=== PATIENT | female | born 1960 | race Caucasian/White ===

== ENCOUNTER 2023-01-10 07:15 | Outpatient (CLI) | payer OTHER ==
[2023-01-10 14:30] LABS: BASOPHILS % (AUTO) 0.6 %; EOSINOPHILS # (AUTO) 0.2 10^3/uL (0.0-0.7); EOSINOPHILS % (AUTO) 3.2 %; HCT - HEMATOCRIT 45.1 % (37.0-47.0); HGB - HEMOGLOBIN 13.9 g/dL (12.0-16.0); LYMPHOCYTES # (AUTO) 1.8 10^3/uL (1.5-3.5); LYMPHOCYTES % (AUTO) 29.3 %; MEAN CORPUSCULAR HEMOGLOBIN 27.3 pg (27.0-31.0); MEAN CORPUSCULAR HGB CONC 30.8 g/dL (32.0-36.0); MEAN CORPUSCULAR VOLUME 88.6 fL (81.0-99.0); MONOCYTES # (AUTO) 0.5 10^3/uL (0.0-1.0); MONOCYTES % (AUTO) 7.6 %; NEUTROPHILS # (AUTO) 3.7 10^3/uL (1.5-6.6); NEUTROPHILS % (AUTO) 59.1 %; PLT - PLATELET COUNT 282 10^3/uL (130-450); RED BLOOD COUNT 5.09 10^6/uL (4.20-5.40); RED CELL DISTRIBUTION WIDTH 14.3 % (12.0-15.0); WHITE BLOOD COUNT 6.2 x10^3/uL (4.8-10.8)
[2023-01-10 15:12] LABS: THYROID STIMULATING HORMONE 3.11 uIU/mL (0.34-5.60)
[2023-01-10 15:16] LABS: ALBUMIN 3.7 g/dL (3.2-5.5); ALBUMIN/GLOBULIN RATIO 1.1 (1.0-2.2); ALKALINE PHOSPHATASE 54 IU/L (42-121); ALT ALANINE AMINOTRANSFERASE 14 IU/L (10-60); AST ASPARTATE AMINOTRANSFERASE 16 IU/L (10-42); BILIRUBIN,TOTAL 0.5 mg/dL (0.2-1.0); BUN - BLOOD UREA NITROGEN 20 mg/dL (6-20); CALCIUM 9.2 mg/dL (8.5-10.3); CARBON DIOXIDE - CO2 29 mmol/L (21-32); CHLORIDE 102 mmol/L (101-111); CHOL/HDL RATIO 6.7 (<4.4); CHOLESTEROL 276 mg/dL; CREATININE 0.8 mg/dL (0.4-1.0); GFR - MDRD 73 (>89); GLUCOSE 103 mg/dL (70-100); HDL CHOLESTEROL 41 mg/dL; LDL CHOLESTEROL,CALCULATED 160 mg/dL; LDL/HDL RATIO 3.9 (<4.4); POTASSIUM 3.3 mmol/L (3.5-5.0); SODIUM 139 mmol/L (135-145); TRIGLYCERIDES 377 mg/dL; VLDL CHOLESTEROL 75 mg/dL
--- NOTE | 2023-01-10 17:46 | XRAY Report ---
PROCEDURE: Lumbar Spine Complete INDICATIONS: SCOLIOSIS TECHNIQUE: 4 views of the lumbar spine were acquired. COMPARISON: None. FINDINGS: Bones: 5 [id number] vertebrae are present. There is moderate levoscoliosis of lumbar spine wit h apex at L2-3 level and Teran angle measures approximately 30.3 degrees. No vertebral body compressio n fractures. Degenerative endplate changes, loss of disc height and bilateral facet arthrosis through out lumbar spine is seen. There is 1.2 cm anterolisthesis of L4 on L5. No suspicious bony lesions. Soft tissues: Overlying bowel gas pattern is normal. No suspicious soft tissue calcifications. IMPRESSION: 1. Moderate levoscoliosis of lumbar spine as above. No acute compression fracture. 2. 1.2 cm anterolisthesis of L4 on L5. Moderate degenerative disc disease throughout lumbar spine. Reviewed by: Ari Romero MD on 01/10/2023 5:45 PM PDT Approved by: Ari Romero MD on 01/10/2023 5:45 PM PDT Station ID: [id number]
== END 2023-01-10 07:16 | disposition home or self-care (01) ==
LOC: DI.S 07:15
PROVIDERS: ATTEND Internal Medicine
DX: M41.9 Scoliosis, unspecified (principal); I10 Essential (primary) hypertension; L65.9 Nonscarring hair loss, unspecified; M43.16 Spondylolisthesis, lumbar region; M51.36 Other intervertebral disc degeneration, lumbar region
CPT/HCPCS: 36415; 80053; 80061; 83721; 84443; 85025

== ENCOUNTER 2023-08-14 07:26 | Outpatient (CLI) | payer OTHER ==
[2023-08-14 15:53] LABS: CHOL/HDL RATIO 4.4 (<4.4); CHOLESTEROL 176 mg/dL; HDL CHOLESTEROL 40 mg/dL; TRIGLYCERIDES 410 mg/dL (48-352)
[2023-08-14 16:33] LABS: LDL CHOLESTEROL,DIRECT 83 mg/dL (75-193); LDLD/HDL RATIO 2.1 (<4.4)
== END 2023-08-14 07:27 | disposition home or self-care (01) ==
LOC: LAB.S 07:26
PROVIDERS: ATTEND Physician Assistant Medical
DX: I10 Essential (primary) hypertension (principal); E78.01 Familial hypercholesterolemia
CPT/HCPCS: 36415; 80061; 80076; 83721

== ENCOUNTER 2023-09-10 08:05 | Outpatient (CLI) | payer OTHER ==
--- NOTE | 2023-09-10 23:40 | Ultrasound Report ---
PROCEDURE: Carotid Doppler Complete INDICATIONS: HYPERTENSION TECHNIQUE: Color and pulse Doppler interrogation was performed of both carotid systems, with image documentation and velocity measurements. COMPARISON: None. FINDINGS: Right side: Brachial blood pressure: 144/85 mm Hg. Common carotid artery peak systolic velocity: 109 cm/sec. Internal carotid artery peak systolic velocity: 95 cm/sec. Internal carotid artery end diastolic velocity: 24 cm/sec. External carotid artery peak systolic velocity: 119 cm/sec. ICA/CCA peak systolic ratio: 0.86 . Horan scale imaging description: No significant atherosclerotic plaque. Percent internal carotid artery stenosis: No hemodynamically significant stenosis. Vertebral artery: Flow direction is antegrade. Left side: Brachial blood pressure: 115/83 mm Hg. Common carotid artery peak systolic velocity: 92 cm/sec. Internal carotid artery peak systolic velocity: 87 cm/sec. Internal carotid artery end diastolic velocity: 46 cm/sec. External carotid artery peak systolic velocity: 110 cm/sec. ICA/CCA peak systolic ratio: 1.05 . Hroan scale imaging description: Minimal atherosclerotic plaque at the bulb. Percent internal carotid artery stenosis: Less than 50 percent stenosis. Vertebral artery: Flow direction is antegrade. IMPRESSION: 1. In the right internal carotid artery, there is no hemodynamically significant stenosis based on pe ak systolic velocity criteria. 2. In the left internal carotid artery, there is less than 50 percent stenosis based on peak systolic velocity criteria. 3. Antegrade blood flow within the right vertebral artery. 4. Antegrade blood flow within the left vertebral artery. 5. Asymmetric blood flow within the brachial arteries, suggestive of central/proximal stenosis. The estimate of stenosis included in the report of the imaging study was calculated using the [facility]-end orsed standards of carotid artery stenosis. Reviewed by: Dhaval Molina MD on 09/10/2023 11:39 PM PST Approved by: Dhaval Molina MD on 09/10/2023 11:39 PM PST Station ID: [id number]
== END 2023-09-10 08:06 | disposition home or self-care (01) ==
LOC: DI 08:05
PROVIDERS: ATTEND Internal Medicine
DX: E78.01 Familial hypercholesterolemia (principal); I10 Essential (primary) hypertension; R20.2 Paresthesia of skin; I65.22 Occlusion and stenosis of left carotid artery
CPT/HCPCS: 93880

== ENCOUNTER 2023-09-27 10:00 | Outpatient (CLI) | payer OTHER ==
--- NOTE | 2023-09-27 17:18 | XRAY Report ---
PROCEDURE: Knee 4 View BILAT INDICATIONS: BILAT KNEE PAIN TECHNIQUE: 5 views of the knee(s) were acquired. COMPARISON: None. FINDINGS: Bones: No fractures or dislocations. Postsurgical changes of prior ACL repair in the left knee. Mode rate bilateral medial and mild lateral and patellofemoral compartment joint space narrowing and juxta -articular osteophytosis. No suspicious bony lesions. Soft tissues: No knee joint effusion. No suspicious soft tissue calcifications or masses. IMPRESSION: 1.No acute bony abnormality. 2.Moderate bilateral medial and mild lateral and patellofemoral compartment osteoarthritis. 3.Postsurgical changes of prior ACL repair in the left knee. Reviewed by: Rg Hilton MD on 09/27/2023 5:17 PM PST Approved by: Rg Hilton MD on 09/27/2023 5:17 PM PST Station ID: [id number]
== END 2023-09-27 23:59 | disposition home or self-care (01) ==
LOC: DI.WOS 10:00
PROVIDERS: ATTEND Physician Assistant Surgical
DX: M17.0 Bilateral primary osteoarthritis of knee (principal)

== ENCOUNTER 2023-10-04 07:59 | Outpatient (CLI) | payer OTHER ==
[2023-10-04 15:54] LABS: ALBUMIN 4.2 g/dL (3.2-5.5); ALBUMIN/GLOBULIN RATIO 1.7 (1.0-2.2); ALKALINE PHOSPHATASE 54 IU/L (42-121); ALT ALANINE AMINOTRANSFERASE 14 IU/L (10-60); AST ASPARTATE AMINOTRANSFERASE 15 IU/L (10-42); BILIRUBIN,TOTAL 0.5 mg/dL (0.2-1.0); BUN - BLOOD UREA NITROGEN 15 mg/dL (6-20); CALCIUM 9.6 mg/dL (8.5-10.3); CARBON DIOXIDE - CO2 31 mmol/L (21-32); CHLORIDE 101 mmol/L (101-111); CHOL/HDL RATIO 3.2 (<4.4); CHOLESTEROL 143 mg/dL; CREATININE 0.9 mg/dL (0.6-1.3); GFR - MDRD 63 (>89); GLUCOSE 98 mg/dL (74-104); HDL CHOLESTEROL 45 mg/dL; LDL CHOLESTEROL,CALCULATED 67 mg/dL; LDL/HDL RATIO 1.5 (<4.4); POTASSIUM 4.1 mmol/L (3.5-4.5); SODIUM 139 mmol/L (135-145); TOTAL PROTEIN 6.7 g/dL (6.4-8.9); TRIGLYCERIDES 157 mg/dL (48-352); VLDL CHOLESTEROL 31 mg/dL
== END 2023-10-04 08:00 | disposition home or self-care (01) ==
LOC: LAB.S 07:59
PROVIDERS: ATTEND Internal Medicine
DX: I10 Essential (primary) hypertension (principal); E78.01 Familial hypercholesterolemia
CPT/HCPCS: 36415; 80053; 80061; 83721